=== PATIENT | male | born 1985 | race Caucasian/White ===

== ENCOUNTER 2018-07-12 03:11 | Inpatient (IN) | payer OTHER ==
[2018-07-12] VITALS (29 sets, daily range): BP systolic 115–126; BP diastolic 67–82; PULSE 94–126; RESP 14–20
[~2018-07-12] VITALS: Ht 180.3 cm; Wt 105.4 kg
[2018-07-12] MEDS ORDERED: ONDANSETRON (ODT) 4 MG TAB ODT STA (03:53)
[2018-07-12] MEDS ORDERED: SOD CHLORIDE 0.9% 1,000 ML IV STA (06:18)
[2018-07-12] MEDS ORDERED: ONDANSETRON 4 MG INJ IV STA (06:18)
[2018-07-12] MEDS ORDERED: GLUCAGON 1 MG INJ IV STA (06:28)
[2018-07-12] MEDS ORDERED: PROPOFOL 200 MG INJ ONE (07:00)
[2018-07-12] MEDS ORDERED: LIDOCAINE 2% (SDV) 5 ML INJ ONE (07:00)
[2018-07-12] MEDS ORDERED: SUCCINYLCHOLINE CHLORIDE 100 MG/5 ML SYG IV ONE (07:00)
--- NOTE | 2018-07-12 07:27 | ERD ---
ER Documentation Chief Complaint Chief Complaint FOOD STUCK IN THROAT SINCE 2100 HPI Patient is a 32-year-old male with no medical problems who presents with a meat impaction. The patient says that he ate shredded pork last night around 9 PM and felt it get stuck. He has not been able to swallow anything since or even tolerate his own saliva. The patient has been spitting up into a bag. He tried drinking soda but was unable to pass the meat impaction. He said that he has felt this get stuck in the past but it has passed on its own. He has never needed any EGD. ROS All systems reviewed and are negative except as per history of present illness. Allergies Allergies: Coded Allergies: No Known Allergy (Unverified , 07/12/18) PMhx/Soc History of Surgery: Yes (incision and drain) Anesthesia Reaction: No Hx Neurological Disorder: No Hx Respiratory Disorders: No Hx Cardiac Disorders: No Hx Psychiatric Problems: No Hx Miscellaneous Medical Probl: Yes (GERD) Hx Alcohol Use: Yes (social) Hx Substance Use: No Hx Tobacco Use: No Smoking Status: Never smoker FmHx Family History: No diabetes Physical Exam Vitals Vital Signs Date Temp Pulse Resp B/P (MAP) Pulse Ox O2 O2 Flow FiO2 Time Delivery Rate 07/12/18 99.0 99 18 160/103 100 03:14 (122) Physical Exam Const: Moderate distress Head: Atraumatic Eyes: Normal Conjunctiva ENT: Normal External Ears, Nose and Mouth. Neck: Full range of motion. No meningismus. Resp: Clear to auscultation bilaterally Cardio: Regular rate and rhythm, no murmurs Abd: Soft, non tender, non distended. Normal bowel sounds Skin: No petechiae or rashes Back: No midline or flank tenderness Ext: No cyanosis, or edema Neur: Awake and alert Psych: Normal Mood and Affect Results 24 hrs Laboratory Tests Test 07/12/18 07:08 White Blood Count Pending Red Blood Count Pending Hemoglobin Pending Hematocrit Pending Mean Corpuscular Volume Pending Mean Corpuscular Hemoglobin Pending Mean Corpuscular Hemoglobin Concent Pending Red Cell Distribution Width Pending Platelet Count Pending Mean Platelet Volume Pending Current Medications Medications Dose Sig/Narciso Start Time Status Last (Trade) Ordered Route PRN Stop Time Admin Dose Reason Admin Ondansetron 4 mg ONCE STAT 07/12/18 DC 07/12/18 HCl (Zofran ODT 03:53 07/12/18 04:03 Odt) 03:54 Sodium 1,000 ml @ Q1H STAT 07/12/18 DC 07/12/18 Chloride 1,000 mls/hr IV 06:18 07/12/18 07:22 07:17 Ondansetron 4 mg ONCE STAT 07/12/18 DC 07/12/18 HCl (Zofran IV 06:18 07/12/18 07:23 Inj) 06:20 Glucagon 1 mg ONCE STAT 07/12/18 DC 07/12/18 (Glucagen) IV 06:28 07/12/18 07:23 06:29 Procedures/MDM EKG read by me: Rate/Rhythm: Regular rate and rhythm at a rate of 91 Intervals: Normal Impression: No evidence of ischemia or arrhythmia Patient is a 32-year-old male who presents with a meat impaction. Glucagon and Zofran were given without success. Laboratory studies are being checked. I spoke with Dr. Jennings from gastroenterology who is on-call for GI and will see the patient for endoscopy. He says he is unsure as to what time he will be able to do the EGD and that admitting to the hospitalist team would be the best plan. I spoke with Dr. Zapien for admission to a medical surgical observation bed. Departure Diagnosis: Primary Impression: Retained foreign body Condition: MARIANA Hernandez MD Jul 12, 2018 07:27
[2018-07-12] MEDS ORDERED: ONDANSETRON 4 MG INJ IV PRN ×3 (07:30→09:30)
[2018-07-12] MEDS ORDERED: ACETAMINOPHEN 325 MG TAB PO PRN (07:30)
[2018-07-12] MEDS ORDERED: SOD CHLORIDE 0.45% 1,000 ML IV SCH (09:10)
--- NOTE | 2018-07-12 09:10 | PREAC ---
Date/Time of Note Date/Time of Note DATE: 07/12/18 TIME: 09:09 Anesthesia Eval and Record Evaluation Time Pre-Procedure Interview DATE: 07/12/18 TIME: 09:09 Age 32 Sex male NPO: 8 hrs Preoperative diagnosis Meat Impaction Planned procedure EGD Past Medical History Past Medical History: Includes GI: Morbid obesity Surgery & Anesthesia Issues No known issue Meds Anticoagulation: No Beta Neeta within 24 hr: No Reason Beta Neeta not given: Pt. not on B-Neeta Current Medications Ondansetron HCl (Zofran Inj) 4 mg BRIDGE ORDER PRN IV NAUSEA AND/OR VOMITING; Start 07/12/18 at 07:30; Stop 07/13/18 at 07:29 Acetaminophen (Tylenol Tab) 650 mg ER BRIDGE PRN PO MILD PAIN(1-3)OR ELEVATED TEMP; Start 07/12/18 at 07:30; Stop 07/13/18 at 07:29 Meds reviewed: Yes Allergies Coded Allergies: No Known Allergy (Unverified , 07/12/18) Allergies Reviewed: Yes Labs/Studies Labs Reviewed: Reviewed by anesthesiologist Result Diagram: 07/12/18 0708 07/12/18 0708 Laboratory Tests 07/12/18 07:08 test: Negative Studies: ECG Pre-procedure Exam Last vitals Vital Signs Date Temp Pulse Resp B/P (MAP) Pulse Ox O2 O2 Flow FiO2 Time Delivery Rate 07/12/18 93 20 153/101 100 Room Air 08:28 (118) 07/12/18 99.0 03:14 Airway: Adequate mouth opening, Adequate thyromental dist Mallampati: Mallampati II Teeth: Normal Lung: Normal Heart: Normal ASA Physical Status ASA physical status: 2 Emergency: E Planned Anesthetic General/MAC: ETT Pre-operative Attestations Prior to commencing anesthesia and surgery, the patient was re-evaluated, there was verification of: *The patient's identity *The results of appropriate recent lab work and preoperative vital signs *The above evaluation not changing prior to induction *Anesthetic plan, risk benefits, alternative and complications discussed with patient/family; questions answered; patient/family understands, accepts and wishes to proceed. GRACY SANDERS Jul 12, 2018 09:10
[2018-07-12] MEDS ORDERED: HYDROmorphONE 1 MG/5 ML IV SYRINGE IV PRN ×3 (09:30)
[2018-07-12] MEDS ORDERED: METOCLOPRAMIDE 10 MG INJ IV PRN (09:30)
[2018-07-12] MEDS ORDERED: MEPERIDINE 25 MG INJ IV PRN (09:30)
[2018-07-12] MEDS ORDERED: DIPHENHYDRAMINE 50 MG INJ IV PRN (09:30)
[2018-07-12] MEDS ORDERED: ALBUTEROL 0.083% (NEB) 2.5 MG/3 ML AMP HHN PRN (09:30)
[2018-07-12] MEDS ORDERED: FENTAnyl 50 MCG/ML VIAL IV PRN ×2 (09:30)
[2018-07-12] MEDS ORDERED: NACL 0.9% 3 ML SYG IV SCH (09:30)
[2018-07-12] MEDS ORDERED: HYDROCODONE/APAP (5/325) TAB PO PRN (09:30)
--- NOTE | 2018-07-12 10:35 | CONS ---
Date/Time of Note Date/Time of Note DATE: 07/12/18 TIME: 10:27 Assessment/Plan Assessment/Plan Problems: (1) Retained foreign body Status: Acute Assessment/Plan Assessment / Plan: 1. Esophageal Food Impaction - patient ingested Beef cubes around 9pm last night - history of GERD, patient takes PPI regularly -rule out stricture, eosinophilic esophagitis - arrived at ED ~ 3am -they attempted to use reglan, glucagon - unable to relieve patient's chest pressure and mucous -called for EGD and food retrieval -urgent EGD booked. Anesthesia and GI team activated Result Diagram: 07/12/18 0708 07/12/18 0708 Results 24hrs Laboratory Tests Test 07/12/18 07:08 White Blood Count 13.3 H Red Blood Count 6.02 Hemoglobin 18.6 H Hematocrit 52.9 H Mean Corpuscular Volume 87.9 Mean Corpuscular Hemoglobin 30.9 Mean Corpuscular Hemoglobin Concent 35.2 Red Cell Distribution Width 12.5 Platelet Count 369 Mean Platelet Volume 9.6 Immature Granulocytes % 0.400 Neutrophils % 69.1 Lymphocytes % 20.7 Monocytes % 8.1 Eosinophils % 1.2 Basophils % 0.5 Nucleated Red Blood Cells % 0.0 Immature Granulocytes # 0.050 H Neutrophils # 9.2 H Lymphocytes # 2.8 Monocytes # 1.1 H Eosinophils # 0.2 Basophils # 0.1 Nucleated Red Blood Cells # 0.0 Prothrombin Time 12.0 Prothrombin Time Ratio 0.9 INR International Normalized Ratio 0.88 Activated Partial Thromboplast Time 25.7 Sodium Level 145 H Potassium Level 4.1 Chloride Level 105 Carbon Dioxide Level 30 Anion Gap 10 Blood Urea Nitrogen 16 Creatinine 1.14 Est Glomerular Filtrat Rate mL/min > 60 Glucose Level 112 Calcium Level 9.3 Total Bilirubin 1.0 Direct Bilirubin 0.00 Indirect Bilirubin 1.0 Aspartate Amino Transf (AST/SGOT) 50 H Alanine Aminotransferase (ALT/SGPT) 52 Alkaline Phosphatase 77 Troponin I < 0.012 Total Protein 8.9 H Albumin 4.8 Globulin 4.10 H Albumin/Globulin Ratio 1.17 Lipase 47 Consultation Date/Type/Reason Admit Date/Time Jul 12, 2018 at 07:23 Date of Consultation: Jul 12, 2018 Type of Consult GI Reason for Consultation Food impaction Hx of Present Illness Patient has chronic GERD. Takes PPI OTC from [employer]. Was in usual state of health. Ate beef around 9pm last night. Then felt meat get stuck in his throat. Discomfort severe, went to ED. No prior EGDs. Has a history of the same (not as bad episodes per patient). Never had food persist. Unable to swallow saliva. Gastrointestinal: vomiting, other (unable to keep secretions down.) Past Medical History Medications Current Medications Ondansetron HCl (Zofran Inj) 4 mg BRIDGE ORDER PRN IV NAUSEA AND/OR VOMITING; Start 07/12/18 at 07:30; Stop 07/13/18 at 07:29 Acetaminophen (Tylenol Tab) 650 mg ER BRIDGE PRN PO MILD PAIN(1-3)OR ELEVATED TEMP; Start 07/12/18 at 07:30; Stop 07/13/18 at 07:29 Hydromorphone HCl (Dilaudid) 0.2 mg PACU PRN IV MILD PAIN LEVEL 1-3; Start 07/12/18 at 09:30; Stop 07/12/18 at 12:00 Hydromorphone HCl (Dilaudid) 0.4 mg PACU PRN IV MODERATE PAIN LEVEL 4-6; Start 07/12/18 at 09:30; Stop 07/12/18 at 12:00 Hydromorphone HCl (Dilaudid) 0.6 mg PACU PRN IV SEVERE PAIN LEVEL 7-10; Start 07/12/18 at 09:30; Stop 07/12/18 at 12:00 Fentanyl (Sublimaze) 25 mcg PACU ORDER PRN IV MILD PAIN LEVEL 1-3; Start 07/12/18 at 09:30; Stop 07/12/18 at 12:00 Fentanyl (Sublimaze) 50 mcg PACU ORDER PRN IV MODERATE PAIN LEVEL 4-6; Start 07/12/18 at 09:30; Stop 07/12/18 at 12:00 Ondansetron HCl (Zofran Inj) 4 mg PACU ORDER PRN IV NAUSEA AND/OR VOMITING; Start 07/12/18 at 09:30; Stop 07/12/18 at 12:00 Metoclopramide HCl (Reglan) 10 mg PACU ORDER PRN IV NAUSEA AND/OR VOMITING; Start 07/12/18 at 09:30; Stop 07/12/18 at 12:00 Albuterol (Proventil 0.083% (Neb)) 2.5 mg PACU ORDER PRN HHN WHEEZING; Start 07/12/18 at 09:30; Stop 07/12/18 at 12:00 Meperidine HCl (Demerol) 25 mg PACU ORDER PRN IV POST OPERATIVE SHIVERING; Sta rt 07/12/18 at 09:30; Stop 07/12/18 at 12:00 Diphenhydramine HCl (Benadryl) 25 mg PACU ORDER PRN IV PRURITUS; Start 07/12/18 at 09:30; Stop 07/12/18 at 12:00 Sodium Chloride 1,000 ml @ 50 mls/hr Q20H IV ; Start 07/12/18 at 09:10 IV Flush (NS 3 ml) 3 ml PER PROTOCOL IV ; Start 07/12/18 at 09:30 Ondansetron HCl (Zofran Inj) 4 mg Q6H PRN IV NAUSEA AND/OR VOMITING; Start 07/12/18 at 09:30 Acetaminophen (Tylenol Tab) 650 mg Q6H PRN PO PAIN LEVEL 1-3 OR FEVER; Start 07/12/18 at 09:30 Acetaminophen/ Hydrocodone Bitart ([place] (5/325)) 1 tab Q6H PRN PO PAIN LEVEL 4-6; Start 07/12/18 at 09:30 Pantoprazole (Protonix Iv) 40 mg DAILY@06 IV ; Start 07/13/18 at 06:00 Allergies: Coded Allergies: No Known Allergy (Unverified , 07/12/18) Social History Smoking Status: Never smoker Exam/Review of Systems Vital Signs Vitals Vital Signs Date Temp Pulse Resp B/P (MAP) Pulse Ox O2 O2 Flow FiO2 Time Delivery Rate 07/12/18 93 20 153/101 100 Room Air 08:28 (118) 07/12/18 99.0 03:14 Exam Eyes: nl conjunctiva, EOMI, nl lids, nl sclera, PERRL Respiratory: clear to auscultation, normal air movement Cardiovascular: regular rate and rhythm, nl pulses Gastrointestinal: soft, nl liver, spleen, non-tender Extremities: normal pulses Skin: nl turgor; No rash or lesions Medications Medications Current Medications Ondansetron HCl (Zofran Inj) 4 mg BRIDGE ORDER PRN IV NAUSEA AND/OR VOMITING; Start 07/12/18 at 07:30; Stop 07/13/18 at 07:29 Acetaminophen (Tylenol Tab) 650 mg ER BRIDGE PRN PO MILD PAIN(1-3)OR ELEVATED TEMP; Start 07/12/18 at 07:30; Stop 07/13/18 at 07:29 Hydromorphone HCl (Dilaudid) 0.2 mg PACU PRN IV MILD PAIN LEVEL 1-3; Start 07/12/18 at 09:30; Stop 07/12/18 at 12:00 Hydromorphone HCl (Dilaudid) 0.4 mg PACU PRN IV MODERATE PAIN LEVEL 4-6; Start 07/12/18 at 09:30; Stop 07/12/18 at 12:00 Hydromorphone HCl (Dilaudid) 0.6 mg PACU PRN IV SEVERE PAIN LEVEL 7-10; Start 07/12/18 at 09:30; Stop 07/12/18 at 12:00 Fentanyl (Sublimaze) 25 mcg PACU ORDER PRN IV MILD PAIN LEVEL 1-3; Start 07/12/18 at 09:30; Stop 07/12/18 at 12:00 Fentanyl (Sublimaze) 50 mcg PACU ORDER PRN IV MODERATE PAIN LEVEL 4-6; Start 07/12/18 at 09:30; Stop 07/12/18 at 12:00 Ondansetron HCl (Zofran Inj) 4 mg PACU ORDER PRN IV NAUSEA AND/OR VOMITING; Start 07/12/18 at 09:30; Stop 07/12/18 at 12:00 Metoclopramide HCl (Reglan) 10 mg PACU ORDER PRN IV NAUSEA AND/OR VOMITING; Start 07/12/18 at 09:30; Stop 07/12/18 at 12:00 Albuterol (Proventil 0.083% (Neb)) 2.5 mg PACU ORDER PRN HHN WHEEZING; Start 07/12/18 at 09:30; Stop 07/12/18 at 12:00 Meperidine HCl (Demerol) 25 mg PACU ORDER PRN IV POST OPERATIVE SHIVERING; Start 07/12/18 at 09:30; Stop 07/12/18 at 12:00 Diphenhydramine HCl (Benadryl) 25 mg PACU ORDER PRN IV PRURITUS; Start 1/1/19 at 09:30; Stop 07/12/18 at 12:00 Sodium Chloride 1,000 ml @ 50 mls/hr Q20H IV ; Start 07/12/18 at 09:10 IV Flush (NS 3 ml) 3 ml PER PROTOCOL IV ; Start 07/12/18 at 09:30 Ondansetron HCl (Zofran Inj) 4 mg Q6H PRN IV NAUSEA AND/OR VOMITING; Start 07/12/18 at 09:30 Acetaminophen (Tylenol Tab) 650 mg Q6H PRN PO PAIN LEVEL 1-3 OR FEVER; Start 07/12/18 at 09:30 Acetaminophen/ Hydrocodone Bitart ([place] (5/325)) 1 tab Q6H PRN PO PAIN LEVEL 4-6; Start 07/12/18 at 09:30 Pantoprazole (Protonix Iv) 40 mg DAILY@06 IV ; Start 07/13/18 at 06:00 NAHOMI CASTRO Jul 12, 2018 10:35
--- NOTE | 2018-07-12 10:36 | HPN ---
Date/Time of Note Date/Time of Note DATE: 07/12/18 TIME: 10:36 Interval H&P Admission Note Pt. seen H&P reviewed: No system changes NAHOMI CASTRO Jul 12, 2018 10:36
--- NOTE | 2018-07-12 11:18 | HP ---
Date/Time of Note Date/Time of Note DATE: 07/12/18 TIME: 11:18 Assessment/Plan VTE Prophylaxis Pharmacological prophylaxis: other Lines/Catheters IV Catheter Type (from Nrsg): Peripheral IV Assessment/Plan Hospital Course Objective Physical exam General: Patient is laying in bed and answers questions appropriately Mentation: Patient is alert and oriented 4, Head: Normocephalic atraumatic Eyes: EOMI, pupils reactive to light Neck: Supple, nontender, midline Respiratory: Clear to auscultation bilaterally Cardiovascular: regular rate, no obvious murmurs Gastrointestinal: non-tender to palpation, bowel sounds heard. Neurological: Moves all extremities spontaneously Skin: No new skin lesions Assessment and plan Esophageal food impaction -Status post EGD removal -Doing well GERD -Continue PPI Disposition -Monitor for comp occasions overnight, DC tomorrow if stable. Result Diagram: 07/12/18 0708 07/12/18 0708 Results 24hrs Laboratory Tests Test 07/12/18 07:08 White Blood Count 13.3 H Red Blood Count 6.02 Hemoglobin 18.6 H Hematocrit 52.9 H Mean Corpuscular Volume 87.9 Mean Corpuscular Hemoglobin 30.9 Mean Corpuscular Hemoglobin Concent 35.2 Red Cell Distribution Width 12.5 Platelet Count 369 Mean Platelet Volume 9.6 Immature Granulocytes % 0.400 Neutrophils % 69.1 Lymphocytes % 20.7 Monocytes % 8.1 Eosinophils % 1.2 Basophils % 0.5 Nucleated Red Blood Cells % 0.0 Immature Granulocytes # 0.050 H Neutrophils # 9.2 H Lymphocytes # 2.8 Monocytes # 1.1 H Eosinophils # 0.2 Basophils # 0.1 Nucleated Red Blood Cells # 0.0 Prothrombin Time 12.0 Prothrombin Time Ratio 0.9 INR International Normalized Ratio 0.88 Activated Partial Thromboplast Time 25.7 Sodium Level 145 H Potassium Level 4.1 Chloride Level 105 Carbon Dioxide Level 30 Anion Gap 10 Blood Urea Nitrogen 16 Creatinine 1.14 Est Glomerular Filtrat Rate mL/min > 60 Glucose Level 112 Calcium Level 9.3 Total Bilirubin 1.0 Direct Bilirubin 0.00 Indirect Bilirubin 1.0 Aspartate Amino Transf (AST/SGOT) 50 H Alanine Aminotransferase (ALT/SGPT) 52 Alkaline Phosphatase 77 Troponin I < 0.012 Total Protein 8.9 H Albumin 4.8 Globulin 4.10 H Albumin/Globulin Ratio 1.17 Lipase 47 HPI/ROS Admit Date/Time Admit Date/Time Jul 12, 2018 at 07:23 Hx of Present Illness Patient is a male with no significant past medical history except for some GERD who presents to [facility] for some beef that got stuck in his esophagus. Patient states that he was eating beef and then felt to get stuck around 9 PM yesterday. Patient currently is status post op from EGD, GI was able to remove meat impaction. Currently has no acute complaints feels well. Patient denies chest pain, shortness of breath, abdominal pain, headache, double vision, leg pain. PMH/Family/Social Past Medical History Medications Current Medications Ondansetron HCl (Zofran Inj) 4 mg BRIDGE ORDER PRN IV NAUSEA AND/OR VOMITING; Start 07/12/18 at 07:30; Stop 07/13/18 at 07:29 Acetaminophen (Tylenol Tab) 650 mg ER BRIDGE PRN PO MILD PAIN(1-3)OR ELEVATED TEMP; Start 07/12/18 at 07:30; Stop 07/13/18 at 07:29 Hydromorphone HCl (Dilaudid) 0.2 mg PACU PRN IV MILD PAIN LEVEL 1-3; Start 07/12/18 at 09:30; Stop 07/12/18 at 12:00 Hydromorphone HCl (Dilaudid) 0.4 mg PACU PRN IV MODERATE PAIN LEVEL 4-6; Start 07/12/18 at 09:30; Stop 07/12/18 at 12:00 Hydromorphone HCl (Dilaudid) 0.6 mg PACU PRN IV SEVERE PAIN LEVEL 7-10; Start 07/12/18 at 09:30; Stop 07/12/18 at 12:00 Fentanyl (Sublimaze) 25 mcg PACU ORDER PRN IV MILD PAIN LEVEL 1-3; Start 07/12/18 at 09:30; Stop 07/12/18 at 12:00 Fentanyl (Sublimaze) 50 mcg PACU ORDER PRN IV MODERATE PAIN LEVEL 4-6; Start 07/12/18 at 09:30; Stop 07/12/18 at 12:00 Ondansetron HCl (Zofran Inj) 4 mg PACU ORDER PRN IV NAUSEA AND/OR VOMITING; Start 07/12/18 at 09:30; Stop 07/12/18 at 12:00 Metoclopramide HCl (Reglan) 10 mg PACU ORDER PRN IV NAUSEA AND/OR VOMITING; Start 07/12/18 at 09:30; Stop 07/12/18 at 12:00 Albuterol (Proventil 0.083% (Neb)) 2.5 mg PACU ORDER PRN HHN WHEEZING; Start 07/12/18 at 09:30; Stop 07/12/18 at 12:00 Meperidine HCl (Demerol) 25 mg PACU ORDER PRN IV POST OPERATIVE SHIVERING; Start 07/12/18 at 09:30; Stop 07/12/18 at 12:00 Diphenhydramine HCl (Benadryl) 25 mg PACU ORDER PRN IV PRURITUS; Start 07/12/18 at 09:30; Stop 07/12/18 at 12:00 IV Flush (NS 3 ml) 3 ml PER PROTOCOL IV ; Start 07/12/18 at 09:30 Ondansetron HCl (Zofran Inj) 4 mg Q6H PRN IV NAUSEA AND/OR VOMITING; Start 07/12/18 at 09:30 Acetaminophen (Tylenol Tab) 650 mg Q6H PRN PO PAIN LEVEL 1-3 OR FEVER; Start 07/12/18 at 09:30 Acetaminophen/ Hydrocodone Bitart ([place] (5/325)) 1 tab Q6H PRN PO PAIN LEVEL 4-6; Start 07/12/18 at 09:30 Pantoprazole (Protonix Iv) 40 mg DAILY@06 IV ; Start 07/13/18 at 06:00 Coded Allergies: No Known Allergy (Unverified , 07/12/18) Social History Smoking Status: Never smoker Exam/Review of Systems Vital Signs Vitals Vital Signs Date Temp Pulse Resp B/P (MAP) Pulse Ox O2 O2 Flow FiO2 Time Delivery Rate 07/12/18 94 18 117/82 94 Room Air 10:56 (94) 07/12/18 2.0 10:26 07/12/18 98.6 10:21 JOSY REES Jul 12, 2018 11:18
--- NOTE | 2018-07-12 11:40 | NUR ---
RECEIVED PATIENT REPORT FROM VASYL MESSINA AT 1130. RECEIVED PATIENT TO 402 AT THIS TIME. PATIENT ALERT , ORIENTED , VERBAL . VITALS STABLE UPON ADMISSION. RIGHT AC IV SITE INRTACT AND PATENT WITH IV FLUID ON FLOW. PATIENT RECEIVED S/P EGD FOR DISIMPACTED FOOD IN THROAT. ON CLEAR LIQUID DIET. INTRODUCED TO THE STAFF AND ROOM . CALL LIGHT SYSTEM INSTRUCTED . ALL SAFETY PRECAUTIONS STARTED TO PREVENT FALLS AND INJURIES SUCH BED IN THE LOWEST POSITION, ALARMS ON, BRAKES ON, CALL LIGHT SYSTEM WITHIN REACH. SCD'S ON. WILL CONTINUE TO MONITOR.
--- NOTE | 2018-07-12 14:45 | NUR ---
PATIENT CONTINUED WITH MONITORING , NO COMPLAINTS OF PAIN . SKIN IS INTACT. NOTED ELEVATED TEMPERATEURE WITH 99 DEGRTEES . TYLENOL ADMINISTERED WITH ICE PACK APPLIED. ALL SAFETY PRECAUTIONS CONTINUED. PATIENT TOLERATED WITH CLEAR LIQUID DIET. VOID ONCE USING URINAL
--- NOTE | 2018-07-12 15:30 | NUR ---
CONTACTED DR NEGRITA FERRIS REGARDING PATIENT TEMPERATURE ELEVATED TO 101 DEGREE AND TACHYCARDIA PULSE RATE FROM FLUCTUATING BETWEEN 110-120'S. RECEIVED ORDERS FOR IV FLUID BOLUS 1 LITER AND IV MAINTENANCE AND MONITOR PATIENT . PATIENT CONTINUED WITH MONITORING THE. VITALS . PATIENT DENIED ANY PAIN OR OTHER COMPLAINTS AT THIS TIME.
[2018-07-12] MEDS ORDERED: SOD CHLORIDE 0.9% 1,000 ML IV ONE (16:00)
--- NOTE | 2018-07-12 16:00 | NUR ---
CONTACTED DR. REES REGARDING THE PATIENT TEMPERATURE ELEVED TO 103 DEGREES AND TACHY CARDIA 120'S . INFORMED HE WILL BE CONTACTING TO DR. CANALES FOR SEEING THE PATIENT. AWAITING FOR DR. MELENDEZ CONTINUED WITH IV FLUIDS AND NPO AT THIS TIME.
--- NOTE | 2018-07-12 16:30 | NUR ---
DR. CANALES SEEN THE PATIENT AND ORDERED FOR LABS , CHEST XRAY AND AND EKG. CONTINUED MONITORING THE PATIENT, .
[2018-07-12] MEDS: SOD CHLORIDE 0.9% 1,000 ML IV SCH (16:49)
--- NOTE | 2018-07-12 17:00 | NUR ---
DR. CANALES CONTACTED REGARDING THE RESULTS OF CHEST XRAY MILD ATELECTASIS ON LEFT LOBE .AND SEEN EKG , BUT NOTHING SIGNIFICANT WITH EKG PER DR. CANALES . AWAITING RESULTS OF BLOOD CULTRE. .
--- NOTE | 2018-07-12 17:40 | NUR ---
RECEIVED ORDERS FOR INJ ZOSYN Q6 HRS BY DR. CANALES . PATIENT RESULT INFORMED TO DR. CANALES FOR LACTIC ACID 4.1 . .MD ORDERED FOR TRANSFERING THE PATIENT TO [address] [place], [place] [id number]. TEMPERATURE AT TIS TIME IS 102. AND . INFORMED MD REGARDING THAT. ALL SAFETY PRECAUTIONS CONTINUED.
[2018-07-12] MEDS: PIPER-TAZO 3.375 GM IV (PMX) 100 ML IVPB SCH ×2 (18:03→23:58)
--- NOTE | 2018-07-12 18:20 | NUR ---
Report given by VASYL De La Cruz from [facility] to continue care for patient. Patient to go to Rm#[id number]. CN to pick-up patient from Rm#[id number].
--- NOTE | 2018-07-12 18:40 | NUR ---
Patient transferred from [facility], pick-up by charge nurse re:Dx sepsis-Lactic acid-4, per report NS bolus given and started with antibiotics, [id number]. A/A/Ox4, continent of G/G. V/S taken. Will endorse to the night nurse to continue care, assessment for patient. Will continue to monitor.
--- NOTE | 2018-07-12 18:40 | NUR ---
PATIENT REPORT GIVEN TO VASYL ENRIQUEZ AT 1840 PATIENT CONTINUED TO BE MONITORED . IV ATB ADMINISTERED. PATIENT COLLECTED FROM 402 ROOM AT THIS TIME. TRANSFERRED SAFELY. FAMILY INFORMED REGARDING TRANSFER, AND AGREED,
[2018-07-12] MEDS: ACETAMINOPHEN 325 MG TAB PO PRN ×2 (20:01→23:58)
--- NOTE | 2018-07-12 20:53 | CONS ---
Date/Time of Note Date/Time of Note DATE: 07/12/18 TIME: 20:29 Assessment/Plan Assessment/Plan Hospital Course ID NOTE => SEE DR. FRENCH'S FULL NOTE DICTATION OF SAME DATE CURRENT ABX=> Zosyn #1 24H INTERVAL SUMMARY * SPIKING FEVERS post urgent EGD for removal of fluid/food bezoar impaction. * He is feeling better -- TNS to tele for close monitoring overnight. * NAD -- no significant pain - no dyspnea to suggest esophageal perf -- rather feels "scratch throat". * Family present: Mother, Aunt/Uncle -- I met with them all at bedside. EXAM GENERAL:A/A/O -- fevers coming down, VSS, NAD HEENT: AT,NC, anicteric moist mucous membranes, no thrush NECK: Supple, trachea midline CHEST: Equal chest rise bilaterally, without distress = lungs clear HEART: Pulse RRR ABDOMEN: Obese, soft, NT EXTREMITIES: Warm, moves all ext, no C/C/E Neuro: Grossly intact, no deficits Psych: Calm, polite, pleasant, good historian, appropriate eye contact, mood/affect normal ID ASSESSMENT 32 yo obese M being seen for ABX management with: 1. SIRS on admission with TMax 99.+, WBC 13.3, HR 99 on admission due to acute esophageal food impaction * POD#0=> s/p urgent EGD today w/removal of fluid/food bezoar impaction in the distal esophagus 2. Sepsis w/post EGD procedure fevers > 103, HR 126, leukocytosis w/WBC rising to 18.2 w/lactic acid 4.1 * DDx: * Esophageal perf == Highly doubt as currently in NAD * Esophagitis / Esophageal ulcer / local infection * Suspect transient migration of bacteria across esophageal "varices" created by many hours of back pressure in distal esophagus from food bolus impaction. * Aspiration Pneumonitis event pre & post procedure -- per CT significant fluid build up in esophagus prior to removal 3. GERD--- risk for esophageal scarring, stricture, ulcers, AND risk for silent aspiration INVASIVES: PIV ABX ALLERGY: KNDA CURRENT ABX=> Zosyn #1 ID RECOMMENDATIONS 1. Continue Zosyn 2. f/u on BCx sent 3. I met with patient family at bedside and discussed my suspicion: * Suspect local esophageal trauma injury from the food bolus impaction -- with transient migration of bacteria across esophageal "varices" created by many hours of back pressure in distal esophagus from the fluid build up/bezoar -- as seen in the distal esophagus on the CT prior to removal. RATIONALE: The fevers spiked so high and came on so sudden post procedure == most consistent with a transient GNR bacteremia. Doubt esophageal perf -- he is simply not in severe distress without much pain and no dyspnea. * No indication for urgent CT -- he is not in distress and do not need to expose him to unnecessary XRT after he has already had 2 CT today. * Patient family express understanding, agreement, and gratitude for my visit -- they tell me they feel assured and I explained that patient will be monitored overnight by TELE monitor which also provides assurance that he will have eyes watching him all night. . Result Diagram: 07/12/18 1645 07/12/18 0708 Results 24hrs Laboratory Tests Test 07/12/18 07:08 07/12/18 16:45 White Blood Count 13.3 H 18.2 #H Red Blood Count 6.02 5.27 Hemoglobin 18.6 H 16.3 Hematocrit 52.9 H 46.8 Mean Corpuscular Volume 87.9 88.8 Mean Corpuscular Hemoglobin 30.9 30.9 Mean Corpuscular Hemoglobin Concent 35.2 34.8 Red Cell Distribution Width 12.5 12.6 Platelet Count 369 287 # Mean Platelet Volume 9.6 9.7 Immature Granulocytes % 0.400 0.300 Neutrophils % 69.1 89.5 H Lymphocytes % 20.7 4.8 L Monocytes % 8.1 5.0 Eosinophils % 1.2 0.1 Basophils % 0.5 0.3 Nucleated Red Blood Cells % 0.0 0.0 Immature Granulocytes # 0.050 H 0.060 H Neutrophils # 9.2 H 16.3 H Lymphocytes # 2.8 0.9 Monocytes # 1.1 H 0.9 Eosinophils # 0.2 0.0 Basophils # 0.1 0.1 Nucleated Red Blood Cells # 0.0 0.0 Prothrombin Time 12.0 Prothrombin Time Ratio 0.9 INR International Normalized Ratio 0.88 Activated Partial Thromboplast Time 25.7 Sodium Level 145 H Potassium Level 4.1 Chloride Level 105 Carbon Dioxide Level 30 Anion Gap 10 Blood Urea Nitrogen 16 Creatinine 1.14 Est Glomerular Filtrat Rate mL/min > 60 Glucose Level 112 Calcium Level 9.3 Total Bilirubin 1.0 Direct Bilirubin 0.00 Indirect Bilirubin 1.0 Aspartate Amino Transf (AST/SGOT) 50 H Alanine Aminotransferase (ALT/SGPT) 52 Alkaline Phosphatase 77 Troponin I < 0.012 Total Protein 8.9 H Albumin 4.8 Globulin 4.10 H Albumin/Globulin Ratio 1.17 Lipase 47 Lactic Acid Level 4.1 *H Consultation Date/Type/Reason Admit Date/Time Jul 12, 2018 at 07:23 Initial Consult Date 07/12/18 Exam/Review of Systems Vital Signs Vitals Vital Signs Date Temp Pulse Resp B/P (MAP) Pulse Ox O2 O2 Flow FiO2 Time Delivery Rate 07/12/18 100.3 20:01 07/12/18 117 19:15 07/12/18 19 124/73 94 Room Air 18:53 (90) 07/12/18 2.0 10:26 Medications Medications Current Medications IV Flush (NS 3 ml) 3 ml PER PROTOCOL IV ; Start 07/12/18 at 09:30 Ondansetron HCl (Zofran Inj) 4 mg Q6H PRN IV NAUSEA AND/OR VOMITING; Start 07/12/18 at 09:30 Acetaminophen (Tylenol Tab) 650 mg Q6H PRN PO PAIN LEVEL 1-3 OR FEVER Last administered on 07/12/18at 20:01; Admin Dose 650 MG; Start 07/12/18 at 09:30 Acetaminophen/ Hydrocodone Bitart ([place] (5/325)) 1 tab Q6H PRN PO PAIN LEVEL 4-6; Start 07/12/18 at 09:30 Pantoprazole (Protonix Iv) 40 mg DAILY@06 IV ; Start 07/13/18 at 06:00 Sodium Chloride 1,000 ml @ 100 mls/hr Q10H IV Last administered on 07/12/18at 16:49; Admin Dose 100 MLS/HR; Start 07/12/18 at 16:00 Piperacillin Sod/ Tazobactam Sod 100 ml @ 200 mls/hr Q6 IVPB Last administered on 07/12/18at 18:03; Admin Dose 200 MLS/HR; Start 07/12/18 at 18:00 MJ CARROLL NP Jul 12, 2018 20:39
[2018-07-13] VITALS (13 sets, daily range): BP systolic 125–140; BP diastolic 69–79; PULSE 72–99; RESP 18–20
--- NOTE | 2018-07-13 01:12 | CONS ---
DATE OF ADMISSION: 07/12/2018 DATE OF CONSULTATION: 07/12/2018 REASON FOR CONSULTATION: Antibiotic management. HISTORY OF PRESENT ILLNESS: Lazaro Fish is a 32-year-old male who had food stuck in his throat sin ce 2100 of 07/11/2018. He presents with meat impaction. The patient says that he ate shredded pork around 9 p.m. and felt it get stuck. He has not been able to swallow anything since or even tolerate d his own saliva. He has been unable to pass the meat impaction. He said that he has felt things ge tting stuck in the past, but it has passed on its own. The patient has a history of GERD. His white count on admission was 13.3 and then 18.2 with hemoglobin of 16.3 and 46.8, platelet count 287,000 w ith 90% polys, or polymorphonucleocytes. He had a lactic acid of 4.1. His BUN and creatinine were 1 6/1.4. A chest x-ray showed mild atelectasis at the lung base, otherwise unremarkable chest radiogra ph. A soft tissue neck CT showed fluid-filled distention of the visualized upper esophagus. No defi nite radiopaque foreign body or bezoar. Correlation with upper GI and/or chest CT was recommended fo r further evaluation. A chest CT showed fluid-filled distention of the esophagus secondary to soft t issue/bezoar in the distal third of the esophagus. Findings are in keeping with the patient's histor y of a food impaction. Correlate with direct visual inspection. HOSPITAL COURSE: The patient was seen by Dr. Stuart Jennings, who called for EGD and food retrieval. Urgen t EGD was booked. Anesthesia and GI team activated. The patient had an EGD and the esophageal food impaction or the food itself was removed. The patient was placed on Zosyn 3.375 grams IV piggyback q .6 because of elevated white count of 18.2. OPERATIONS: None, he only had history of incision and drainage. PAST MEDICAL HISTORY: As noted. FAMILY HISTORY: Noncontributory. SOCIAL HISTORY: He drinks alcohol socially. He does not smoke or abuse drugs. ALLERGIES: NONE TO PENICILLIN, SULFA OR FOODS. MEDICATIONS: Per chart. REVIEW OF SYSTEMS: Noncontributory. PHYSICAL EXAMINATION: GENERAL: The patient is alert, responsive, in no acute distress. VITAL SIGNS: Stable. He is afebrile. SKIN: Without generalized rash. HEENT: Within normal limits. NECK: Supple. LYMPH NODES: None palpable. CHEST: Decreased breath sounds at the bases. HEART: Without murmur or gallop. ABDOMEN: Soft, nontender, without organosplenomegaly or masses. EXTREMITIES: Without cyanosis, clubbing, or edema. RECTAL AND GENITAL: Deferred. NEUROLOGICAL: Within normal limits. IMPRESSION AND PLAN: Lazaro Fish is a 32-year-old male who had meat impaction. It is unclear why his white count is 18.2. There is no evidence of perforation at this point. However, I concur with the use of Zosyn in view of the fact that he has such a high leukocytosis. He is currently febrile u p to 103 and I am concerned that there may be a perforation. A repeat CT scan may be necessary. I w ill dictate my findings to the hospitalist. Dictated By: RADHA FRENCH MD, JD/JOHNATHON Conf#: [id number] DID#: [id number] CC: JOSY REES MD;*EndCC*
[2018-07-13] MEDS: SOD CHLORIDE 0.9% 1,000 ML IV SCH ×4 (02:00→22:51)
[2018-07-13] MEDS: PANTOPRAZOLE 40 MG INJ IV SCH (05:57)
[2018-07-13] MEDS: PIPER-TAZO 3.375 GM IV (PMX) 100 ML IVPB SCH ×3 (05:57→18:27)
--- NOTE | 2018-07-13 06:33 | NUR ---
END OF SHIFT REPORT PATIENT TRANSFERRED FROM [facility] FOR TACHYCARDIA AND EVALUATION OF THE CAUSE OF FEVER. HE WAS FEBRILE THROUGHOUT THE NIGHT AND LYZED ONLY THIS MORNING. GIVEN 2 DOSES OF ACETAMINOPHEN 650 MG. NO COMPLAINT EXCEPT FOR THE HIGH GRADE FEVER. MAINTAINED ON NPO (EXCEPT FOR MEDS), ON NSS RUNNIKNG AT 100/HR.
--- NOTE | 2018-07-13 10:41 | PN ---
Date/Time of Note Date/Time of Note DATE: 07/13/18 TIME: 10:16 Assessment/Plan VTE Prophylaxis Risk score (from Ns)>0 risk: 1 SCD applied (from [facility]): No SCD contraindicated: low risk/ambulating Pharmacological prophylaxis: NA/contraindicated Pharm contraindication: low risk/ambulating Lines/Catheters IV C[facility]ter Type (from [facility]): Peripheral IV Assessment/Plan Hospital Course Assessment: Food impaction EGD 07/12/18 Food impaction-successfully cleared endoscopically Esophagitis Leukocytosis/Fevers Elevated Lactic acid Plan: Pt consulted by ID- patient has already been started on Zosyn Upper GI with Gastrografin- rule out perforation- NPO for now Monitor labs Patient discussed in depth with Dr. Castro Subjective: Course reviewed with nursing staff Patient interviewed and examined All labs, imaging and other results reviewed The patient states he now has "body aches" T-max 103 yesterday Bp has been stable, He denies n/v or abd pain. Pt does c/o 'weird sensation" in esophagus which may be r/t food bezoar Additionally he c/o neck stiffness. Discussed with patient plan for additional imaging at this time. Result Diagram: 07/13/1827 07/13/18526 Results 24hrs Laboratory Tests Test 07/12/18 16:45 07/12/18 20:41 07/13/18 05:27 White Blood Count 18.2 #H 22.4 #H Red Blood Count 5.27 5.06 Hemoglobin 16.3 15.8 Hematocrit 46.8 45.9 Mean Corpuscular Volume 88.8 90.7 Mean Corpuscular Hemoglobin 30.9 31.2 Mean Corpuscular Hemoglobin Concent 34.8 34.4 Red Cell Distribution Width 12.6 13.0 Platelet Count 287 # 271 Mean Platelet Volume 9.7 9.9 Immature Granulocytes % 0.300 0.600 H Neutrophils % 89.5 H 82.9 H Lymphocytes % 4.8 L 10.6 L Monocytes % 5.0 5.2 Eosinophils % 0.1 0.3 Basophils % 0.3 0.4 Nucleated Red Blood Cells % 0.0 0.0 Immature Granulocytes # 0.060 H 0.140 H Neutrophils # 16.3 H 18.6 H Lymphocytes # 0.9 2.4 Monocytes # 0.9 1.2 H Eosinophils # 0.0 0.1 Basophils # 0.1 0.1 Nucleated Red Blood Cells # 0.0 0.0 Lactic Acid Level 4.1 *H 2.7 *H Sodium Level 142 Potassium Level 3.8 Chloride Level 107 Carbon Dioxide Level 28 Anion Gap 7 Blood Urea Nitrogen 15 Creatinine 1.20 Est Glomerular Filtrat Rate mL/min > 60 Glucose Level 97 Hemoglobin A1c 4.9 Calcium Level 8.6 Magnesium Level 2.0 Total Bilirubin 2.5 H Direct Bilirubin 0.00 Indirect Bilirubin 2.5 H Aspartate Amino Transf (AST/SGOT) 47 H Alanine Aminotransferase (ALT/SGPT) 41 Alkaline Phosphatase 55 Total Protein 7.0 # Albumin 3.8 # Globulin 3.20 Albumin/Globulin Ratio 1.18 CC: NAHOMI CASTRO ; Exam/Review of Systems Vital Signs Vitals Vital Signs Date Temp Pulse Resp B/P (MAP) Pulse Ox O2 O2 Flow FiO2 Time Delivery Rate 07/13/18 98 09:03 07/13/18 98.7 20 126/69 90 Room Air 07:36 (88) 07/12/18 2.0 10:26 Intake and Output 07/12/18 07/12/18 07/13/18 1414:59 22:59 06:59 IntakeIntake Total 500 ml 400 ml 900 ml OutputOutput Total 200 ml BalanceBalance 300 ml 400 ml 900 ml Exam Constitutional: alert, oriented Head: normocephalic Eyes: nl conjunctiva ENMT: nl external ears & nose Neck: supple Respiratory: crackles/rales Cardiovascular: regular rate and rhythm Gastrointestinal: soft, bowel sounds; No distended, No firm, No hepatomegaly, No mass Medications Medications Current Medications IV Flush (NS 3 ml) 3 ml PER PROTOCOL IV ; Start 07/12/18 at 09:30 Ondansetron HCl (Zofran Inj) 4 mg Q6H PRN IV NAUSEA AND/OR VOMITING; Start 07/12/18 at 09:30 Acetaminophen (Tylenol Tab) 650 mg Q6H PRN PO PAIN LEVEL 1-3 OR FEVER Last administered on 07/12/18at 23:58; Admin Dose 650 MG; Start 07/12/18 at 09:30 Acetaminophen/ Hydrocodone Bitart ([place] (5/325)) 1 tab Q6H PRN PO PAIN LEVEL 4-6; Start 07/12/18 at 09:30 Pantoprazole (Protonix Iv) 40 mg DAILY@06 IV Last administered on 07/13/18at 05:57; Admin Dose 40 MG; Start 07/13/18 at 06:00 Sodium Chloride 1,000 ml @ 100 mls/hr Q10H IV Last administered on 07/13/18at 04:59; Admin Dose 100 MLS/HR; Start 07/12/18 at 16:00 Piperacillin Sod/ Tazobactam Sod 100 ml @ 200 mls/hr Q6 IVPB Last administered on 07/13/18at 05:57; Admin Dose 200 MLS/HR; Start 07/12/18 at 18:00 JODI STEPHENSON Jul 13, 2018 10:26
--- NOTE | 2018-07-13 13:28 | PN ---
Date/Time of Note Date/Time of Note DATE: 07/13/18 TIME: 13:20 Objective Vitals Vital Signs Date Temp Pulse Resp B/P (MAP) Pulse Ox O2 O2 Flow FiO2 Time Delivery Rate 07/13/18 93 12:31 07/13/18 98.3 20 128/79 16 Room Air 11:14 (95) 07/12/18 2.0 10:26 Intake and Output 07/12/18 07/12/18 07/13/18 1515:00 23:00 07:00 IntakeIntake Total 500 ml 400 ml 900 ml OutputOutput Total 200 ml BalanceBalance 300 ml 400 ml 900 ml Results Result Diagram: 07/13/1827 07/13/18526 Medications Medications Current Medications IV Flush (NS 3 ml) 3 ml PER PROTOCOL IV ; Start 07/12/18 at 09:30 Ondansetron HCl (Zofran Inj) 4 mg Q6H PRN IV NAUSEA AND/OR VOMITING; Start 07/12/18 at 09:30 Acetaminophen (Tylenol Tab) 650 mg Q6H PRN PO PAIN LEVEL 1-3 OR FEVER Last administered on 07/12/18at 23:58; Admin Dose 650 MG; Start 07/12/18 at 09:30 Acetaminophen/ Hydrocodone Bitart ([place] (5/325)) 1 tab Q6H PRN PO PAIN LEVEL 4-6 Last administered on 07/13/18at 11:22; Admin Dose 1 TAB; Start 07/12/18 at 09:30 Pantoprazole (Protonix Iv) 40 mg DAILY@06 IV Last administered on 07/13/18at 05:57; Admin Dose 40 MG; Start 07/13/18 at 06:00 Sodium Chloride 1,000 ml @ 100 mls/hr Q10H IV Last administered on 07/13/18at 04:59; Admin Dose 100 MLS/HR; Start 07/12/18 at 16:00 Piperacillin Sod/ Tazobactam Sod 100 ml @ 200 mls/hr Q6 IVPB Last administered on 07/13/18at 11:23; Admin Dose 200 MLS/HR; Start 07/12/18 at 18:00 VTE Prophylaxis Risk score (from Ns)>0 risk: 1 SCD applied (from Nsg): No SCD contraindication: other Lines/Catheters IV Catheter Type: Estrada in Place: No Assessment/Plan Hospital Course subjective patient feeling better Objective Physical exam General: Patient is laying in bed and answers questions appropriately Mentation: Patient is alert and oriented 4, Head: Normocephalic atraumatic Eyes: EOMI, pupils reactive to light Neck: Supple, nontender, midline Respiratory: Clear to auscultation bilaterally Cardiovascular: regular rate, no obvious murmurs Gastrointestinal: non-tender to palpation, bowel sounds heard. Neurological: Moves all extremities spontaneously Skin: No new skin lesions Assessment and plan sepsis -? source, ?throat -NS -IVF -IV ABX -monitor tachycardia -2/2 to above -monitor Esophageal food impaction -Status post EGD removal -GI series pending GERD -Continue PPI Disposition -ID and GI recs -upper GI series pending JOSY REES Jul 13, 2018 13:28
[2018-07-13] MEDS ORDERED: BARIUM SULFATE 135 ML (E-Z HD) PO ONE (14:00)
[2018-07-13] MEDS ORDERED: DIATR MEGLU/DIATRIZOATE SODIUM 120 ML BTL ONE (14:00)
--- NOTE | 2018-07-13 14:08 | CONS ---
Date/Time of Note Date/Time of Note DATE: 07/13/18 TIME: 14:07 Assessment/Plan Assessment/Plan Hospital Course Patient is alert and feels much better looks comfortable no fevers overnight WBC 22.4 platelets 271 neutrophils 82.9 BUN 15 creatinine 1.20 Antimicrobials: Zosyn Physical examination: Well-developed obese middle-aged man who is alert in no distress. Head atraumatic normocephalic sclera nonicteric. Neck is supple. Chest rise symmetrical. Breath sounds clear. Heart: S1-S2. Abdomen soft bowel sounds present. Extremities without cyanosis Assessment: 1. Systemic inflammatory response syndrome with ongoing leukocytosis 2. Food impaction status post EGD 07/12/18, successfully cleared endoscopically 3. GERD Plan: Patient is stable, gastroenterology on case, continue present care, continue antibiotics for now, follow labs in a.m. pending upper GI series Result Diagram: 07/13/18 0527 07/13/18 0527 Results 24hrs Laboratory Tests Test 07/12/18 16:45 07/12/18 20:41 07/13/18 05:27 White Blood Count 18.2 #H 22.4 #H Red Blood Count 5.27 5.06 Hemoglobin 16.3 15.8 Hematocrit 46.8 45.9 Mean Corpuscular Volume 88.8 90.7 Mean Corpuscular Hemoglobin 30.9 31.2 Mean Corpuscular Hemoglobin Concent 34.8 34.4 Red Cell Distribution Width 12.6 13.0 Platelet Count 287 # 271 Mean Platelet Volume 9.7 9.9 Immature Granulocytes % 0.300 0.600 H Neutrophils % 89.5 H 82.9 H Lymphocytes % 4.8 L 10.6 L Monocytes % 5.0 5.2 Eosinophils % 0.1 0.3 Basophils % 0.3 0.4 Nucleated Red Blood Cells % 0.0 0.0 Immature Granulocytes # 0.060 H 0.140 H Neutrophils # 16.3 H 18.6 H Lymphocytes # 0.9 2.4 Monocytes # 0.9 1.2 H Eosinophils # 0.0 0.1 Basophils # 0.1 0.1 Nucleated Red Blood Cells # 0.0 0.0 Lactic Acid Level 4.1 *H 2.7 *H Sodium Level 142 Potassium Level 3.8 Chloride Level 107 Carbon Dioxide Level 28 Anion Gap 7 Blood Urea Nitrogen 15 Creatinine 1.20 Est Glomerular Filtrat Rate mL/min > 60 Glucose Level 97 Hemoglobin A1c 4.9 Calcium Level 8.6 Magnesium Level 2.0 Total Bilirubin 2.5 H Direct Bilirubin 0.00 Indirect Bilirubin 2.5 H Aspartate Amino Transf (AST/SGOT) 47 H Alanine Aminotransferase (ALT/SGPT) 41 Alkaline Phosphatase 55 Total Protein 7.0 # Albumin 3.8 # Globulin 3.20 Albumin/Globulin Ratio 1.18 Consultation Date/Type/Reason Admit Date/Time Jul 12, 2018 at 07:23 Initial Consult Date 07/12/18 Type of Consult id Exam/Review of Systems Vital Signs Vitals Vital Signs Date Temp Pulse Resp B/P (MAP) Pulse Ox O2 O2 Flow FiO2 Time Delivery Rate 07/13/18 93 12:31 07/13/18 98.3 20 128/79 16 Room Air 11:14 (95) 07/12/18 2.0 10:26 Intake and Output 07/12/18 07/12/18 07/13/18 1515:00 23:00 07:00 IntakeIntake Total 500 ml 400 ml 900 ml OutputOutput Total 200 ml BalanceBalance 300 ml 400 ml 900 ml Medications Medications Current Medications IV Flush (NS 3 ml) 3 ml PER PROTOCOL IV ; Start 07/12/18 at 09:30 Ondansetron HCl (Zofran Inj) 4 mg Q6H PRN IV NAUSEA AND/OR VOMITING; Start 07/12/18 at 09:30 Acetaminophen (Tylenol Tab) 650 mg Q6H PRN PO PAIN LEVEL 1-3 OR FEVER Last administered on 07/12/18at 23:58; Admin Dose 650 MG; Start 07/12/18 at 09:30 Acetaminophen/ Hydrocodone Bitart ([place] (5/325)) 1 tab Q6H PRN PO PAIN LEVEL 4-6 Last administered on 07/13/18at 11:22; Admin Dose 1 TAB; Start 07/12/18 at 09:30 Pantoprazole (Protonix Iv) 40 mg DAILY@06 IV Last administered on 07/13/18at 05:57; Admin Dose 40 MG; Start 07/13/18 at 06:00 Sodium Chloride 1,000 ml @ 100 mls/hr Q10H IV Last administered on 07/13/18at 04:59; Admin Dose 100 MLS/HR; Start 07/12/18 at 16:00 Piperacillin Sod/ Tazobactam Sod 100 ml @ 200 mls/hr Q6 IVPB Last administered on 07/13/18at 11:23; Admin Dose 200 MLS/HR; Start 07/12/18 at 18:00 MARTÍNEZ IVERSON NP Jul 13, 2018 14:08
--- NOTE | 2018-07-13 18:56 | NUR ---
EOSS: Patient still NPO, went down to Radiology for abdominal test ordered. IV fluids on going. Patient with low grade on and off. Antibiotics given as ordered. This afternoon patient stated having loose stool, per patient drank contrast before the test. Will endorsed to night nurse to monitor bowel movements, [id number] BM. Will continue to monitor.
[2018-07-13] MEDS: ACETAMINOPHEN 325 MG TAB PO PRN (20:38)
--- NOTE | 2018-07-13 23:40 | NUR ---
Pt arrived on unit at around 2340. Pt was transported by wheelchair. Pt in no signs of acute distress. Vitals signs taken and were WNL. Pt is afebrile and denies pain at this time. Pt inventory taken and pt states to have all his belongings with him. Pictures of heels and sacrum taken per protocol. Fall precautions implemented. Pt explained to call for help when getting out of bed. Will continue to monitor.
--- NOTE | 2018-07-14 00:33 | NUR ---
RN NOTES: TRANSFER PT TO [facility] R#[id number]. REPORT GIVEN TO OMAYRA/RN 2E. VS CHECK, T=98.5 (O) AT 2130. LACTIC ACID=1.1 AT 2200 AND STILL NPO. PT HAS GIRLFRIEND AT BEDSIDE. HE SAID HE WILL CALL HIS FAMILY REGARDING CHANGING HIM TO [facility].
[2018-07-14] MEDS: PIPER-TAZO 3.375 GM IV (PMX) 100 ML IVPB SCH ×5 (00:55→23:43)
[2018-07-14 02:00] VITALS: BP 117/65; PULSE 69; RESP 18
--- NOTE | 2018-07-14 05:36 | NUR ---
End of Shift RN Note: Pt remained asleep comfortably through the night. Pt in no signs of acute distress, vital signs stable. Hourly rounding was provided for the pt, was instructed to call for help when getting OOB. Fall precautions were implemented. Antibiotics were administered as ordered. Will continue to monitor through the end of my shift.
[2018-07-14] MEDS: PANTOPRAZOLE 40 MG INJ IV SCH (06:07)
--- NOTE | 2018-07-14 07:20 | PAC ---
Date/Time of Note Date/Time of Note DATE: 07/14/18 TIME: 07:20 Post-Anesthesia Notes Post-Anesthesia Note Last documented vital signs Vital Signs Date Temp Pulse Resp B/P (MAP) Pulse Ox O2 O2 Flow FiO2 Time Delivery Rate 07/14/18 97.6 69 18 117/65 94 Room Air 02:00 (82) 07/12/18 2.0 10:26 Activity: WNL Respiratory function: WNL Cardiovascular function: WNL Mental status: Baseline Pain reasonably controlled: Yes Hydration appropriate: Yes Nausea/Vomiting absent: Yes GRACY SANDERS Jul 14, 2018 07:20
[2018-07-14] MEDS: SOD CHLORIDE 0.9% 1,000 ML IV SCH ×3 (07:41→23:46)
[2018-07-14 08:18] VITALS: BP 132/75; PULSE 71; RESP 18
--- NOTE | 2018-07-14 14:59 | PN ---
Date/Time of Note Date/Time of Note DATE: 07/14/18 TIME: 14:58 Objective Vitals Vital Signs Date Temp Pulse Resp B/P (MAP) Pulse Ox O2 O2 Flow FiO2 Time Delivery Rate 07/14/18 98.2 71 18 132/75 94 Room Air 08:18 (94) 07/12/18 2.0 10:26 Intake and Output 07/13/18 07/13/18 07/14/18 1515:00 23:00 07:00 IntakeIntake Total 100 ml 750 ml 650 ml BalanceBalance 100 ml 750 ml 650 ml Results Result Diagram: 07/14/1872607/14/18726 Medications Medications Current Medications IV Flush (NS 3 ml) 3 ml PER PROTOCOL IV ; Start 07/12/18 at 09:30 Ondansetron HCl (Zofran Inj) 4 mg Q6H PRN IV NAUSEA AND/OR VOMITING; Start 07/12/18 at 09:30 Acetaminophen (Tylenol Tab) 650 mg Q6H PRN PO PAIN LEVEL 1-3 OR FEVER Last administered on 07/13/18at 20:38; Admin Dose 650 MG; Start 07/12/18 at 09:30 Acetaminophen/ Hydrocodone Bitart ([place] (5/325)) 1 tab Q6H PRN PO PAIN LEVEL 4-6 Last administered on 07/13/18at 11:22; Admin Dose 1 TAB; Start 07/12/18 at 09:30 Pantoprazole (Protonix Iv) 40 mg DAILY@06 IV Last administered on 07/14/18at 06:07; Admin Dose 40 MG; Start 07/13/18 at 06:00 Sodium Chloride 1,000 ml @ 100 mls/hr Q10H IV Last administered on 07/14/18at 13:54; Admin Dose 100 MLS/HR; Start 07/12/18 at 16:00 Piperacillin Sod/ Tazobactam Sod 100 ml @ 200 mls/hr Q6 IVPB Last administered on 07/14/18at 12:19; Admin Dose 200 MLS/HR; Start 07/12/18 at 18:00 VTE Prophylaxis Risk score (from Nsg)>0 risk: 2 SCD applied (from Nsg): No SCD contraindication: other Lines/Catheters IV Catheter Type: Estrada in Place: No Assessment/Plan Hospital Course subjective patient feeling better Objective Physical exam General: Patient is laying in bed and answers questions appropriately Mentation: Patient is alert and oriented 4, Head: Normocephalic atraumatic Eyes: EOMI, pupils reactive to light Neck: Supple, nontender, midline Respiratory: Clear to auscultation bilaterally Cardiovascular: regular rate, no obvious murmurs Gastrointestinal: non-tender to palpation, bowel sounds heard. Neurological: Moves all extremities spontaneously Skin: No new skin lesions Assessment and plan sepsis -? source, ?throat -hold ivf -IV ABX, ? stop per ID? -monitor tachycardia -2/2 to above -monitor Esophageal food impaction -Status post EGD removal -GI series wnl GERD -Continue PPI Disposition -ID and GI recs -GI series WNL -monitor and possible dc tomorrow JOSY REES Jul 14, 2018 14:59
[2018-07-14 15:00] VITALS: BP 128/70; PULSE 76; RESP 18
--- NOTE | 2018-07-14 15:13 | PN ---
Date/Time of Note Date/Time of Note DATE: 07/14/18 TIME: 15:05 Assessment/Plan VTE Prophylaxis Risk score (from Ns)>0 risk: 2 SCD applied (from Ns): No SCD contraindicated: low risk/ambulating Pharmacological prophylaxis: NA/contraindicated Pharm contraindication: low risk/ambulating Lines/Catheters IV [facility]from [facility] Urinary Cath still in place: No Assessment/Plan Hospital Course Assessment: Food impaction EGD 07/12/18 Food impaction-successfully cleared endoscopically Esophagitis Leukocytosis- resolved Fevers- currently afebrile Elevated Lactic acid- resolved Indirect hyperbilirubinemia Plan: Pt appears stable and is cleared by GI for out-pt management Continue PPI 40 mg PP qam x4 week Recommend f/u with PCP or GI to recheck labs regarding indirect hyperbilirubinemia as out-pt D/c planning per hospitalist Patient discussed in depth with Dr. Jennings Subjective: Course reviewed with nursing staff Patient interviewed and examined All labs, imaging and other results reviewed Overall patient feels much better today tolerating soft diet without difficulty. Discussed importance of chewing well and eating slowly to prevent further ep isodes of food impaction. Upper GI x-ray shows normal upper GI series, no evidence of esophageal pe rforation WBCs today are within normal limits. Of note patient with indirect hyperbilirubinemia no known history of gallbladder syndrome. Recommend patient follow-up with PCP or GI for further evaluation to recheck labs in near future. Result Diagram: 07/14/18 0727 07/14/18 0727 Results 24hrs Laboratory Tests Test 07/13/18 22:23 07/14/18 07:27 Lactic Acid Level 1.1 White Blood Count 10.4 # Red Blood Count 4.87 Hemoglobin 15.3 Hematocrit 44.0 Mean Corpuscular Volume 90.3 Mean Corpuscular Hemoglobin 31.4 Mean Corpuscular Hemoglobin Concent 34.8 Red Cell Distribution Width 12.2 Platelet Count 256 Mean Platelet Volume 9.9 Immature Granulocytes % 0.300 Neutrophils % 71.4 Lymphocytes % 18.3 Monocytes % 6.8 Eosinophils % 2.7 Basophils % 0.5 Nucleated Red Blood Cells % 0.0 Immature Granulocytes # 0.030 Neutrophils # 7.5 Lymphocytes # 1.9 Monocytes # 0.7 Eosinophils # 0.3 Basophils # 0.1 Nucleated Red Blood Cells # 0.0 Sodium Level 141 Potassium Level 3.8 Chloride Level 109 Carbon Dioxide Level 25 Anion Gap 7 Blood Urea Nitrogen 15 Creatinine 1.02 Est Glomerular Filtrat Rate mL/min > 60 Glucose Level 73 Calcium Level 8.1 L Phosphorus Level 3.2 Magnesium Level 2.1 Exam/Review of Systems Vital Signs Vitals Vital Signs Date Temp Pulse Resp B/P (MAP) Pulse Ox O2 O2 Flow FiO2 Time Delivery Rate 07/14/18 98.2 71 18 132/75 94 Room Air 08:18 (94) 07/12/18 2.0 10:26 Intake and Output 07/13/18 07/13/18 07/14/18 1515:00 23:00 07:00 IntakeIntake Total 100 ml 750 ml 650 ml BalanceBalance 100 ml 750 ml 650 ml Exam Constitutional: alert, oriented Psych: no complaints Head: normocephalic Eyes: nl conjunctiva ENMT: nl external ears & nose Neck: supple Respiratory: clear to auscultation Cardiovascular: regular rate and rhythm Gastrointestinal: soft, non-tender Musculoskeletal: nl extremities to inspection Medications Medications Current Medications IV Flush (NS 3 ml) 3 ml PER PROTOCOL IV ; Start 07/12/18 at 09:30 Ondansetron HCl (Zofran Inj) 4 mg Q6H PRN IV NAUSEA AND/OR VOMITING; Start 07/12/18 at 09:30 Acetaminophen (Tylenol Tab) 650 mg Q6H PRN PO PAIN LEVEL 1-3 OR FEVER Last administered on 07/13/18at 20:38; Admin Dose 650 MG; Start 07/12/18 at 09:30 Acetaminophen/ Hydrocodone Bitart ([place] (5/325)) 1 tab Q6H PRN PO PAIN LEVEL 4-6 Last administered on 07/13/18at 11:22; Admin Dose 1 TAB; Start 07/12/18 at 09:30 Pantoprazole (Protonix Iv) 40 mg DAILY@06 IV Last administered on 07/14/18at 06:07; Admin Dose 40 MG; Start 07/13/18 at 06:00 Sodium Chloride 1,000 ml @ 100 mls/hr Q10H IV Last administered on 07/14/18at 13:54; Admin Dose 100 MLS/HR; Start 07/12/18 at 16:00 Piperacillin Sod/ Tazobactam Sod 100 ml @ 200 mls/hr Q6 IVPB Last administered on 07/14/18at 12:19; Admin Dose 200 MLS/HR; Start 07/12/18 at 18:00 JODI STEPHENSON Jul 14, 2018 15:13
--- NOTE | 2018-07-14 15:50 | CONS ---
Date/Time of Note Date/Time of Note DATE: 07/14/18 TIME: 15:49 Assessment/Plan Assessment/Plan Hospital Course No acute events overnight patient feels much better white blood cell count went down, no fevers nausea vomiting diarrhea, no swallowing difficulties Antimicrobials: Zosyn Physical examination: Well-developed obese middle-aged man who is alert in no distress. Head atraumatic normocephalic sclera nonicteric. Neck is supple. Chest rise symmetrical. Breath sounds clear. Heart: S1-S2. Abdomen soft bowel sounds present. Extremities without cyanosis Assessment: 1. Systemic inflammatory response syndrome with reactive leukocytosis 2. Food impaction status post EGD 07/12/18, successfully cleared endoscopically 3. GERD Plan: Patient is stable, cleared by gastroenterology, we will will discontinue antibiotics Result Diagram: 07/14/18 0727 07/14/1827 Results 24hrs Laboratory Tests Test 07/13/18 22:23 07/14/18 07:27 Lactic Acid Level 1.1 White Blood Count 10.4 # Red Blood Count 4.87 Hemoglobin 15.3 Hematocrit 44.0 Mean Corpuscular Volume 90.3 Mean Corpuscular Hemoglobin 31.4 Mean Corpuscular Hemoglobin Concent 34.8 Red Cell Distribution Width 12.2 Platelet Count 256 Mean Platelet Volume 9.9 Immature Granulocytes % 0.300 Neutrophils % 71.4 Lymphocytes % 18.3 Monocytes % 6.8 Eosinophils % 2.7 Basophils % 0.5 Nucleated Red Blood Cells % 0.0 Immature Granulocytes # 0.030 Neutrophils # 7.5 Lymphocytes # 1.9 Monocytes # 0.7 Eosinophils # 0.3 Basophils # 0.1 Nucleated Red Blood Cells # 0.0 Sodium Level 141 Potassium Level 3.8 Chloride Level 109 Carbon Dioxide Level 25 Anion Gap 7 Blood Urea Nitrogen 15 Creatinine 1.02 Est Glomerular Filtrat Rate mL/min > 60 Glucose Level 73 Calcium Level 8.1 L Phosphorus Level 3.2 Magnesium Level 2.1 Consultation Date/Type/Reason Admit Date/Time Jul 13, 2018 at 17:31 Initial Consult Date 07/12/18 Type of Consult id Exam/Review of Systems Vital Signs Vitals Vital Signs Date Temp Pulse Resp B/P (MAP) Pulse Ox O2 O2 Flow FiO2 Time Delivery Rate 07/14/18 98.2 71 18 132/75 94 Room Air 08:18 (94) 07/12/18 2.0 10:26 Intake and Output 07/13/18 07/13/18 07/14/18 1515:00 23:00 07:00 IntakeIntake Total 100 ml 750 ml 650 ml BalanceBalance 100 ml 750 ml 650 ml Medications Medications Current Medications IV Flush (NS 3 ml) 3 ml PER PROTOCOL IV ; Start 07/12/18 at 09:30 Ondansetron HCl (Zofran Inj) 4 mg Q6H PRN IV NAUSEA AND/OR VOMITING; Start 07/12/18 at 09:30 Acetaminophen (Tylenol Tab) 650 mg Q6H PRN PO PAIN LEVEL 1-3 OR FEVER Last administered on 07/13/18at 20:38; Admin Dose 650 MG; Start 07/12/18 at 09:30 Acetaminophen/ Hydrocodone Bitart ([place] (5/325)) 1 tab Q6H PRN PO PAIN LEVEL 4-6 Last administered on 07/13/18at 11:22; Admin Dose 1 TAB; Start 07/12/18 at 09:30 Pantoprazole (Protonix Iv) 40 mg DAILY@06 IV Last administered on 07/14/18at 06:07; Admin Dose 40 MG; Start 07/13/18 at 06:00 Sodium Chloride 1,000 ml @ 100 mls/hr Q10H IV Last administered on 07/14/18at 13:54; Admin Dose 100 MLS/HR; Start 07/12/18 at 16:00 Piperacillin Sod/ Tazobactam Sod 100 ml @ 200 mls/hr Q6 IVPB Last administered on 07/14/18at 12:19; Admin Dose 200 MLS/HR; Start 07/12/18 at 18:00 MARTÍNEZ IVERSON [employer] Jul 14, 2018 15:50
--- NOTE | 2018-07-14 15:51 | CONS ---
Date/Time of Note Date/Time of Note DATE: 07/14/18 TIME: 15:50 Assessment/Plan Assessment/Plan Hospital Course No acute events overnight, pt spiked fever yesterday, currently afebrile, nad Antimicrobials: Zosyn Physical examination: Well-developed obese middle-aged man who is alert in no distress. Head atraumatic normocephalic sclera nonicteric. Neck is supple. Chest rise symmetrical. Breath sounds clear. Heart: S1-S2. Abdomen soft bowel sounds present. Extremities without cyanosis Assessment: 1. Systemic inflammatory response syndrome with reactive leukocytosis 2. Food impaction status post EGD 07/12/18, successfully cleared endoscopically 3. GERD Plan: Patient is stable, cleared by gastroenterology, we will check cxr in am and reculture prn, keep on abx over night Result Diagram: 07/14/18 0727 07/14/18 0727 Results 24hrs Laboratory Tests Test 07/13/18 22:23 07/14/18 07:27 Lactic Acid Level 1.1 White Blood Count 10.4 # Red Blood Count 4.87 Hemoglobin 15.3 Hematocrit 44.0 Mean Corpuscular Volume 90.3 Mean Corpuscular Hemoglobin 31.4 Mean Corpuscular Hemoglobin Concent 34.8 Red Cell Distribution Width 12.2 Platelet Count 256 Mean Platelet Volume 9.9 Immature Granulocytes % 0.300 Neutrophils % 71.4 Lymphocytes % 18.3 Monocytes % 6.8 Eosinophils % 2.7 Basophils % 0.5 Nucleated Red Blood Cells % 0.0 Immature Granulocytes # 0.030 Neutrophils # 7.5 Lymphocytes # 1.9 Monocytes # 0.7 Eosinophils # 0.3 Basophils # 0.1 Nucleated Red Blood Cells # 0.0 Sodium Level 141 Potassium Level 3.8 Chloride Level 109 Carbon Dioxide Level 25 Anion Gap 7 Blood Urea Nitrogen 15 Creatinine 1.02 Est Glomerular Filtrat Rate mL/min > 60 Glucose Level 73 Calcium Level 8.1 L Phosphorus Level 3.2 Magnesium Level 2.1 Consultation Date/Type/Reason Admit Date/Time Jul 13, 2018 at 17:31 Initial Consult Date 07/12/18 Type of Consult id Exam/Review of Systems Vital Signs Vitals Vital Signs Date Temp Pulse Resp B/P (MAP) Pulse Ox O2 O2 Flow FiO2 Time Delivery Rate 07/14/18 98.2 71 18 132/75 94 Room Air 08:18 (94) 07/12/18 2.0 10:26 Intake and Output 07/13/18 07/13/18 07/14/18 1515:00 23:00 07:00 IntakeIntake Total 100 ml 750 ml 650 ml BalanceBalance 100 ml 750 ml 650 ml Medications Medications Current Medications IV Flush (NS 3 ml) 3 ml PER PROTOCOL IV ; Start 07/12/18 at 09:30 Ondansetron HCl (Zofran Inj) 4 mg Q6H PRN IV NAUSEA AND/OR VOMITING; Start 07/12/18 at 09:30 Acetaminophen (Tylenol Tab) 650 mg Q6H PRN PO PAIN LEVEL 1-3 OR FEVER Last administered on 07/13/18at 20:38; Admin Dose 650 MG; Start 07/12/18 at 09:30 Acetaminophen/ Hydrocodone Bitart ([place] (5/325)) 1 tab Q6H PRN PO PAIN LEVEL 4-6 Last administered on 07/13/18at 11:22; Admin Dose 1 TAB; Start 07/12/18 at 09:30 Pantoprazole (Protonix Iv) 40 mg DAILY@06 IV Last administered on 07/14/18at 06:07; Admin Dose 40 MG; Start 07/13/18 at 06:00 Sodium Chloride 1,000 ml @ 100 mls/hr Q10H IV Last administered on 07/14/18at 13:54; Admin Dose 100 MLS/HR; Start 07/12/18 at 16:00 Piperacillin Sod/ Tazobactam Sod 100 ml @ 200 mls/hr Q6 IVPB Last administered on 07/14/18at 12:19; Admin Dose 200 MLS/HR; Start 07/12/18 at 18:00 MARTÍNEZ IVERSON NP Jul 14, 2018 15:51
--- NOTE | 2018-07-14 18:45 | NUR ---
patient alert and oriented x 4. no SOB noted. patient denies pain. IV patent. fall precaution in place, call light within reach. Vital sign stable, hourly roundings made. 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
[2018-07-14 19:38] VITALS: BP 137/85; PULSE 64; RESP 18
--- NOTE | 2018-07-14 19:38 | RADRPT ---
Vent Rate: 118 bpm RR Interval: 0 msec SC Interval: 190 msec QRS Duration: 104 msec QT Interval: 298 msec QTC Interval: 417 msec P-R-T [place]: 43 - 93 - -8 degrees Sinus tachycardia Rightward axis Cannot rule out Inferior infarct , age undetermined Abnormal ECG Electronically Signed By: Humberto Bermudez [id number]
[2018-07-15 01:57] VITALS: BP 128/76; PULSE 66; RESP 17
--- NOTE | 2018-07-15 05:30 | NUR ---
End of Shift RN Note: Pt alert amd oriented x4. No acute chnges during my shift. Pt remains stable. No complaints of pain from the pt during my shift. The pt is currently in bed sleeping comfortably with no signs of acute distress. Plan is to DC pt today. Will endorse to next shift accordingly.
[2018-07-15] MEDS: PANTOPRAZOLE 40 MG INJ IV SCH (06:06)
[2018-07-15] MEDS: PIPER-TAZO 3.375 GM IV (PMX) 100 ML IVPB SCH (06:06)
[2018-07-15 07:30] VITALS: BP 127/82; PULSE 57; RESP 16
--- NOTE | 2018-07-15 10:51 | PDOCDIS ---
Discharge Instructions CONDITION [id number] Patient Condition: [id number] Stable HOME CARE INSTRUCTIONS: [id number] Special Diet: [id number] Soft Diet FOLLOW UP/APPOINTMENTS Follow-up Plan 1. Follow up with your primary care provider as soon as possible. Please monitor yourself for fever or esophageal/swallowing issues 2. Please follow up with Dr. Ruben Jennings or Dr. Sundar Ann, gastroenterology, for follow up with meat impaction removal JOSY REES Jul 15, 2018 10:51
--- NOTE | 2018-07-15 10:54 | DS ---
Date/Time of Note Date/Time of Note DATE: 07/15/18 TIME: 10:54 Discharge Summary Admission/Discharge Info Admit Date/Time Jul 13, 2018 at 17:31 Discharge Date/Time Patient Condition: Stable Hx of Present Illness Patient is a male with no significant past medical history except for some GERD who presents to [facility] for some beef that got stuck in his esophagus. Patient states that he was eating beef and then felt to get stuck around 9 PM yesterday. Patient currently is status post op from EGD, GI was able to remove meat impaction. Currently has no acute complaints feels well. Patient denies chest pain, shortness of breath, abdominal pain, headache, double vision, leg pain. Hospital Course Patient is a young male with no significant past medical history except for GERD who presented to [facility] for meat impaction. Patient had uneventful upper endoscopy with removal of meat impaction however subsequently developed fever and possible sepsis soon after. Patient was seen by infectious disease and GI, and monitored in the inpatient setting for a few days. Patient also received upper GI series x-rays which did not show any esophageal or tearing. The issues of fever, tachycardia, and discomfort were all likely secondary to unexplained reaction to anesthesia and infectious disease also agrees with this assessment. Therefore infectious disease does not suggest continued antibiotics and patient has been afebrile for approximately 48 hours and will be discharged with strict instructions to follow-up with GI as well as to monitor for fever and other signs of discomfort. Discharge diagnoses Sepsis, resolved Tachycardia, resolved Esophageal food impaction, resolved GERD Fever, resolved Home Meds No Active Prescriptions or Reported Meds Follow-up Plan 1. Follow up with your primary care provider as soon as possible. Please monitor yourself for fever or esophageal/swallowing issues 2. Please follow up with Dr. Ruben Jennings or Dr. Sundar Ann, gastroenterology, for follow up with meat impaction removal Primary Care Provider Care Physician No Primary Time spent on discharge: > 30 minutes Pending Labs Laboratory Tests Test 07/15/18 04:53 White Blood Count 8.4 10^3/ul (4.8-10.8) Red Blood Count 4.83 10^6/ul (4.70-6.10) Hemoglobin 15.1 g/dl (14.0-18.0) Hematocrit 42.7 % (42.0-52.0) Mean Corpuscular Volume 88.4 fl (82.0-101.0) Mean Corpuscular Hemoglobin 31.3 pg (29.0-33.0) Mean Corpuscular Hemoglobin Concent 35.4 g/dl (32.0-37.0) Red Cell Distribution Width 11.8 % (11.5-14.5) Platelet Count 270 10^3/UL (140-415) Mean Platelet Volume 9.4 fl (7.4-10.4) Immature Granulocytes % 0.500 % (0.001-0.429) Neutrophils % 59.5 % (39.0-77.0) Lymphocytes % 24.9 % (15.0-51.0) Monocytes % 9.1 % (0.0-11.0) Eosinophils % 5.4 % (0.0-7.0) Basophils % 0.6 % (0.0-2.0) Nucleated Red Blood Cells % 0.0 /100WBC (0.0-0.0) Immature Granulocytes # 0.040 10^3/ul (0.0-0.031) Neutrophils # 5.0 10^3/ul (1.6-7.5) Lymphocytes # 2.1 10^3/ul (0.8-2.9) Monocytes # 0.8 10^3/ul (0.3-0.9) Eosinophils # 0.5 10^3/ul (0.0-0.5) Basophils # 0.1 10^3/ul (0.0-0.1) Nucleated Red Blood Cells # 0.0 10^3/ul (0.0-0.0) Sodium Level 141 mmol/L (135-144) Potassium Level 3.8 mmol/L (3.5-5.1) Chloride Level 105 mmol/L (97-110) Carbon Dioxide Level 27 mmol/L (21-31) Anion Gap 9 (5-13) Blood Urea Nitrogen 11 mg/dl (7-20) Creatinine 1.03 mg/dl (0.61-1.24) Est Glomerular Filtrat Rate mL/min > 60 mL/min (>60) Glucose Level 92 mg/dl (70-220) Calcium Level 8.3 mg/dl (8.4-10.2) Phosphorus Level 3.9 mg/dl (2.5-4.9) Magnesium Level 2.0 mg/dl (1.7-2.5) Total Bilirubin 0.8 mg/dl (0.2-1.3) Direct Bilirubin 0.00 mg/dl (0.00-0.20) Indirect Bilirubin 0.8 mg/dl (0-1.1) Aspartate Amino Transf (AST/SGOT) 34 IU/L (15-46) Alanine Aminotransferase (ALT/SGPT) 36 IU/L (13-69) Alkaline Phosphatase 43 IU/L (42-121) Total Protein 6.5 g/dl (6.1-8.1) Albumin 3.3 g/dl (3.3-4.9) JOSY REES Jul 15, 2018 10:54
[2018-07-15] MEDS ORDERED: LEVO750T8 PO (11:10)
--- NOTE | 2018-07-15 11:11 | CONS ---
Date/Time of Note Date/Time of Note DATE: 07/15/18 TIME: 11:10 Assessment/Plan Assessment/Plan Hospital Course No fevers overnight. WBC 8.4. No shift no bands. BUN 11 creatinine 1.03. Chest x-ray this morning revealed atelectasis versus minimal infiltrate in the lingula. Subsegmental emphasis in the right lower lobe. Antimicrobials: Zosyn Physical examination: Well-developed obese middle-aged man who is alert in no distress. Head atraumatic normocephalic sclera nonicteric. Neck is supple. Chest rise symmetrical. Breath sounds clear. Heart: S1-S2. Abdomen soft bowel sounds present. Extremities without cyanosis Assessment: 1. Systemic inflammatory response syndrome, leukocytosis resolved 2. Food impaction status post EGD 07/12/18, successfully cleared endoscopically 3. Possible pneumonitis Plan: Continue present care, anticipate discharge on oral Levaquin given new radiographic findings for at least 5 more days Result Diagram: 07/15/18 0453 07/15/18 0453 Results 24hrs Laboratory Tests Test 07/15/18 04:53 White Blood Count 8.4 Red Blood Count 4.83 Hemoglobin 15.1 Hematocrit 42.7 Mean Corpuscular Volume 88.4 Mean Corpuscular Hemoglobin 31.3 Mean Corpuscular Hemoglobin Concent 35.4 Red Cell Distribution Width 11.8 Platelet Count 270 Mean Platelet Volume 9.4 Immature Granulocytes % 0.500 H Neutrophils % 59.5 Lymphocytes % 24.9 Monocytes % 9.1 Eosinophils % 5.4 Basophils % 0.6 Nucleated Red Blood Cells % 0.0 Immature Granulocytes # 0.040 H Neutrophils # 5.0 Lymphocytes # 2.1 Monocytes # 0.8 Eosinophils # 0.5 Basophils # 0.1 Nucleated Red Blood Cells # 0.0 Sodium Level 141 Potassium Level 3.8 Chloride Level 105 Carbon Dioxide Level 27 Anion Gap 9 Blood Urea Nitrogen 11 Creatinine 1.03 Est Glomerular Filtrat Rate mL/min > 60 Glucose Level 92 Calcium Level 8.3 L Phosphorus Level 3.9 Magnesium Level 2.0 Total Bilirubin 0.8 Direct Bilirubin 0.00 Indirect Bilirubin 0.8 Aspartate Amino Transf (AST/SGOT) 34 Alanine Aminotransferase (ALT/SGPT) 36 Alkaline Phosphatase 43 Total Protein 6.5 Albumin 3.3 Consultation Date/Type/Reason Admit Date/Time Jul 13, 2018 at 17:31 Initial Consult Date 07/12/18 Type of Consult id Exam/Review of Systems Vital Signs Vitals Vital Signs Date Temp Pulse Resp B/P (MAP) Pulse Ox O2 O2 Flow FiO2 Time Delivery Rate 07/15/18 98.3 57 16 127/82 95 Room Air 07:30 (97) 07/12/18 2.0 10:26 Intake and Output 07/14/18 07/14/18 07/15/18 1515:00 23:00 07:00 IntakeIntake Total 100 ml 1300 ml 1200 ml OutputOutput Total 300 ml BalanceBalance 100 ml 1300 ml 900 ml Medications Medications Current Medications IV Flush (NS 3 ml) 3 ml PER PROTOCOL IV ; Start 07/12/18 at 09:30 Ondansetron HCl (Zofran Inj) 4 mg Q6H PRN IV NAUSEA AND/OR VOMITING; Start 07/12/18 at 09:30 Acetaminophen (Tylenol Tab) 650 mg Q6H PRN PO PAIN LEVEL 1-3 OR FEVER Last administered on 07/13/18at 20:38; Admin Dose 650 MG; Start 07/12/18 at 09:30 Acetaminophen/ Hydrocodone Bitart ([place] (5/325)) 1 tab Q6H PRN PO PAIN LEVEL 4-6 Last administered on 07/13/18at 11:22; Admin Dose 1 TAB; Start 07/12/18 at 09:30 Pantoprazole (Protonix Iv) 40 mg DAILY@06 IV Last administered on 07/15/18at 06:06; Admin Dose 40 MG; Start 07/13/18 at 06:00 Piperacillin Sod/ Tazobactam Sod 100 ml @ 200 mls/hr Q6 IVPB Last administered on 07/15/18at 06:06; Admin Dose 200 MLS/HR; Start 07/14/18 at 18:00 MARTÍNEZ IVERSON NP Jul 15, 2018 11:11
[2018-07-15] MEDS ORDERED: LEVOFLOXACIN 750 MG TABLET PO ONE (11:30)
--- NOTE | 2018-07-15 13:22 | NUR ---
Patient is alert and oriented x 4. no signs of SOB. patient denies pain. prescription given to patient, copy placed in chart. discharge instruction given and signed. 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 patient is ambulatory and independent. patient was discharged at 12:45pm. IV access removed, dressing for IV site applied. patient's belonging with pt.
== END 2018-07-15 12:45 | disposition home or self-care (01) | DRG 393 ==
LOC: FTE 03:11 → REC 07:23 → EDBEDREQ 08:07 → MS1 12:16 → TEL 18:41 → OBSVTOIN 07-13 17:31 → PP2 07-14 00:04
PROVIDERS: ADMIT Internal Medicine; ATTEND Internal Medicine
PROC: 0DC58ZZ Extirpation of Matter from Esophagus, Via Natural or Artificial Opening Endoscopic (ICD-10-PCS; principal; 2018-07-12 09:00)
DX: T18.128A Food in esophagus causing other injury, initial encounter (principal); J18.9 Pneumonia, unspecified organism; A41.9 Sepsis, unspecified organism; K21.0 Gastro-esophageal reflux disease with esophagitis; E80.6 Other disorders of bilirubin metabolism
CPT/HCPCS: 36415; 70490; 71045; 71250; 74240; 80048; 80053; 80076; 83036; 83605; 83690; 83735; 84100; 84484; 85025; 85610; 85730; 87040; 88305; 88312; 88313; 93005; 96374; 96375; 99217; G0378; C9113; J1610; J2405; J2543; J7030